=== PATIENT | male | born 1970 | race Caucasian/White ===

== ENCOUNTER 2017-02-26 23:12 | Emergency (ER) | payer MEDICARE ==
[2017-02-26 23:10] LABS: BASOPHILS 0.4 %; BASOPHILS ABSOLUTE 0.04 10/3/uL (0.0-0.16); EOSINOPHILS ABSOLUTE 0.09 10/3/uL (0.0-0.53); HEMATOCRIT 46.9 % (40.0-51.0); HEMOGLOBIN 16.4 g/dL (13.6-17.8); IMMATURE GRANULOCYTES 0.7 %; IMMATURE GRANULOCYTES ABSOLUTE 0.06 10/3/uL (0.0-0.11); LYMPHOCYTES 28.2 %; LYMPHOCYTES ABSOLUTE 2.53 10/3/uL (0.67-4.30); MEAN CORPUSCULAR HEMOGLOB 33.7 pg (26.0-34.0); MEAN CORPUSCULAR VOLUME 96.3 fL (80-100); MEAN PLATELET VOLUME 9.8 fL (9.2-13.0); MONOCYTES 6.6 %; MONOCYTES ABSOLUTE 0.59 10/3/uL (0.21-1.20); NEUTROPHILS 63.1 %; NEUTROPHILS ABSOLUTE 5.66 10/3/uL (2.02-8.40); PLATELET COUNT 194 10/3/uL (150-400); RED CELL COUNT 4.87 10/6/uL (4.7-6.1)
[2017-02-26 23:11] LABS: ER CBC TAT 0 Hrs 15 Mins; MANUAL DIFF NO %
[~2017-02-26 23:12] MED LIST: ASAB PO; LIPITOR10 PO; LOP25 PO; NICODERM C21 MG/241 TOP; PRIN5 PO; ZANTAC150 MG PO
[2017-02-26 23:15] LABS: PARTIAL THROMBO TIME 27.5 SEC (22.5-37.2)
[2017-02-26 23:16] LABS: INTERNATIONAL NORMAL RATI 1.1 UNITS (-); PROTIME (NOT ORD) 13.7 SEC (12.0-14.5)
[2017-02-26 23:25] LABS: BUN (BLOOD UREA NITROGEN) 9 MG/DL (6-23); CHEST PAIN PROFILE TAT 0 Hrs 30 Mins; CHLORIDE, SERUM 105 MMOL/L (96-112); CO2 (CARBON DIOXIDE) 30 MMOL/L (24-34); CREATININE 1.01 MG/DL (0.70-1.30); GFR AFRICAN AMERICAN 104 ML/MIN (>=60); GFR NON AFRICAN AMERICAN 90 ML/MIN (>=60); GLUCOSE, SERUM 106 MG/DL (60-99); POTASSIUM, SERUM 3.9 MMOL/L (3.5-5.3); SODIUM, SERUM 141 MMOL/L (135-148); TROPONIN I <0.02 NG/ML (<0.05)
[2017-02-26 23:49] LABS: ALBUMIN 3.8 G/DL (3.5-5.0); ALKALINE PHOSPHATASE 70 U/L (45-117); SGOT(AST) 62 U/L (5-40); SGPT(ALT) 83 U/L (5-65); TOTAL BILIRUBIN 0.5 MG/DL (0-1.2); TOTAL PROTEIN 8.2 G/DL (6.0-8.5)
[2017-02-26 23:51] LABS: DIRECT BILIRUBIN < 0.1 MG/DL (0.0-0.4); INDIRECT BILIRUBIN(NOT ORDER) 0.4 MG/DL (0.1-0.9)
== END 2017-02-27 02:16 | disposition home or self-care (01) ==
LOC: ER 23:12
PROVIDERS: Emergency Medicine
DX: R07.89 Other chest pain (principal); F41.9 Anxiety disorder, unspecified; I25.2 Old myocardial infarction; I10 Essential (primary) hypertension; Z95.5 Presence of coronary angioplasty implant and graft; Z79.82 Long term (current) use of aspirin; Z79.899 Other long term (current) drug therapy
CPT/HCPCS: 71010; 80048; 80076; 83690; 83735; 84484; 85025; 85610; 85730; 93005; 96374; 99285; A9270-GY; J2405